=== PATIENT | female | born 1940 | race African-American/Black ===

== ENCOUNTER 2021-12-28 14:06 | Inpatient (IN) | payer OTHER ==
[2021-12-28 16:27] LABS: BASO % 0.7 % (0-2.0); EOS % 0.4 % (0-4.5); HEMATOCRIT 45.6 % (32.4-45.2); HEMOGLOBIN 15.3 GM/dL (10.7-15.3); LYMPH % 21.3 % (8-40); MCHC 33.5 g/dl (32.0-36.0); MEAN CELL VOLUME 83.4 fl (80-96); MEAN PLT VOLUME 9.3 fl (7.5-11.1); MONO % 6.7 % (3.8-10.2); NEUT % 70.9 % (42.8-82.8); PLATELET COUNT 225 10^3/uL (134-434); RBC 5.47 M/mm3 (3.60-5.2); RDW 15.7 % (11.6-15.6); WHITE BLOOD COUNT 7.8 K/mm3 (4.0-10.0)
[2021-12-28 16:33] LABS: INR 1.11 (0.83-1.09); PROTHROMBIN TIME (PATIENT) 12.8 SEC (9.7-13.0)
[2021-12-28 16:36] LABS: ACTIVATED PTT 30.6 SECONDS (25.2-36.5)
[2021-12-28 16:47] LABS: CHLORIDE 103 mmol/L (98-107); SODIUM 141 mmol/L (136-145)
[2021-12-28 16:49] LABS: ALBUMIN 3.2 g/dl (3.4-5.0); ANION GAP 10 MMOL/L (8-16); CALCIUM 9.5 mg/dL (8.5-10.1); CO2 28 mmol/L (21-32)
[2021-12-28 16:50] LABS: BLOOD UREA NITROGEN 25.2 mg/dL (7-18); GLUCOSE,RANDOM 143 mg/dL (74-106)
[2021-12-28 16:52] LABS: CREATININE 1.5 mg/dL (0.55-1.3); SGOT/AST 43 U/L (15-37)
[2021-12-28 16:53] LABS: SGPT/ALT 33 U/L (13-61)
[2021-12-28 16:54] LABS: BILIRUBIN,TOTAL 1.3 mg/dL (0.2-1); TOT PROT 6.8 g/dl (6.4-8.2)
[2021-12-28 16:55] LABS: ALK PHOS 46 U/L (45-117)
[2021-12-28 16:57] LABS: N-TERMINAL BNP 1114.2 pg/ml (5-450)
[2021-12-28] MEDS ORDERED: SODIUM CHLORIDE 0.9% 500 ML INFUS.BAG IV ONE (17:12)
[2021-12-28] MEDS ORDERED: ASPIRIN 81 MG CHEWABLE TABLETS PO ONE (17:15)
[2021-12-28] MEDS ORDERED: ASPIRIN 325 MG TABLET ONE (17:31)
[2021-12-28] MEDS ORDERED: POTASSIUM CHLORIDE TABS 20 MEQ TABLET.ER (FP) PO ONE (21:32)
[2021-12-28 21:41] LABS: EPI CELLS 27 /uL (0-25.1); HYALINE CASTS 38 /uL (0-3.1); URINE APPEARANCE CLOUDY; URINE BILIRUBIN 3+ (NEGATIVE); URINE COLOR DK YELLOW; URINE GLUCOSE (UA) NEGATIVE (NEGATIVE); URINE KETONE 1+ (NEGATIVE); URINE LEUK ESTERASE TRACE (NEGATIVE); URINE NITRITE POSITIVE (NEGATIVE); URINE PROTEIN 1+ (NEGATIVE); URINE RBC 18 /uL (0-23.9); URINE WBC 31 /uL (0-25.8)
[2021-12-28] MEDS ORDERED: CEFTRIAXONE 1 GM/50 ML BAG ONE (23:59)
[2021-12-29] MEDS: LACTATED RINGERS SOLUTION 1,000 ML/1,000 ML INFUS.BAG IV SCH ×2 (00:10→23:39)
[2021-12-29] MEDS ORDERED: KCL 10 MEQ IVPB 10 MEQ/100 ML INFUS.BAG IVPB ONE (02:31)
[2021-12-29] MEDS: KCL 10 MEQ IVPB 10 MEQ/100 ML INFUS.BAG IVPB SCH ×4 (02:40→11:38)
[2021-12-29] MEDS ORDERED: CEFTRIAXONE 1 GM in DEXTROSE 5%-WATER - 50 ML IVPB SCH ×2 (02:58→22:33)
[2021-12-29 04:11] VITALS: BMI 20.2
[2021-12-29] MEDS: HEPARIN NA (PORCINE) 5,000 UNITS/ML 1ML VIAL SQ SCH ×3 (05:05→21:13)
[2021-12-29 08:28] LABS: BASO % 0.7 % (0-2.0); EOS % 1.1 % (0-4.5); HEMATOCRIT 39.3 % (32.4-45.2); HEMOGLOBIN 12.6 GM/dL (10.7-15.3); LYMPH % 24.8 % (8-40); MCH 26.8 pg (25.7-33.7); MEAN CELL VOLUME 83.7 fl (80-96); MEAN PLT VOLUME 9.6 fl (7.5-11.1); MONO % 8.5 % (3.8-10.2); NEUT % 64.9 % (42.8-82.8); PLATELET COUNT 188 10^3/uL (134-434); RBC 4.69 M/mm3 (3.60-5.2); RDW 15.5 % (11.6-15.6); WHITE BLOOD COUNT 7.1 K/mm3 (4.0-10.0)
[2021-12-29 08:40] LABS: CHLORIDE 107 mmol/L (98-107); SODIUM 144 mmol/L (136-145)
[2021-12-29 08:45] LABS: GLUCOSE,RANDOM 79 mg/dL (74-106)
[2021-12-29 08:46] LABS: ALBUMIN 2.6 g/dl (3.4-5.0); ANION GAP 10 MMOL/L (8-16); BLOOD UREA NITROGEN 24.4 mg/dL (7-18); CALCIUM 8.9 mg/dL (8.5-10.1); CO2 27 mmol/L (21-32); MAGNESIUM 1.9 mg/dL (1.8-2.4)
[2021-12-29 08:49] LABS: PHOSPHOROUS 3.2 mg/dL (2.5-4.9); SGPT/ALT 27 U/L (13-61)
[2021-12-29 08:50] LABS: CREATININE 1.2 mg/dL (0.55-1.3); SGOT/AST 31 U/L (15-37); TOT PROT 5.6 g/dl (6.4-8.2)
[2021-12-29 08:52] LABS: ALK PHOS 37 U/L (45-117)
[2021-12-29] MEDS ORDERED: ENOXAPARIN NA (PORCINE) 40 MG/0.4 ML DISP.SYRIN SQ SCH (10:00)
[2021-12-29] MEDS ORDERED: POTASSIUM CHLORIDE TABS 20 MEQ TABLET.ER (FP) PO ONE (13:07)
[2021-12-29] MEDS ORDERED: PNEUMOC 20-VAL CONJ-DIP CRM/PF 0.5 ML SYRINGE IM ONE (17:12)
[2021-12-29] MEDS ORDERED: FLU VACC QS2022-23(6MOS UP)/PF 60 MCG/0.5 ML SYRINGE IM ONE (17:12)
[2021-12-30] MEDS: HEPARIN NA (PORCINE) 5,000 UNITS/ML 1ML VIAL SQ SCH ×3 (06:51→21:20)
[2021-12-30] MEDS: KCL 10 MEQ IVPB 10 MEQ/100 ML INFUS.BAG IVPB SCH (06:52)
[2021-12-30 11:19] LABS: CALCIUM 8.9 mg/dL (8.5-10.1)
[2021-12-30 11:21] LABS: MAGNESIUM 1.9 mg/dL (1.8-2.4)
[2021-12-30] MEDS: ATORVASTATIN CA 10 MG TABLET (FP) PO SCH (21:28)
[2021-12-30] MEDS: LACTATED RINGERS SOLUTION 1,000 ML/1,000 ML INFUS.BAG IV SCH (23:55)
[2021-12-31] MEDS: HEPARIN NA (PORCINE) 5,000 UNITS/ML 1ML VIAL SQ SCH ×3 (06:17→23:05)
[2021-12-31 08:21] LABS: BASO % 1.1 % (0-2.0); EOS % 2.1 % (0-4.5); HEMATOCRIT 39.7 % (32.4-45.2); HEMOGLOBIN 12.9 GM/dL (10.7-15.3); LYMPH % 30.8 % (8-40); MCH 27.1 pg (25.7-33.7); MCHC 32.4 g/dl (32.0-36.0); MEAN CELL VOLUME 83.7 fl (80-96); MEAN PLT VOLUME 9.5 fl (7.5-11.1); MONO % 11.4 % (3.8-10.2); NEUT % 54.6 % (42.8-82.8); PLATELET COUNT 162 10^3/uL (134-434); RBC 4.75 M/mm3 (3.60-5.2); RDW 15.7 % (11.6-15.6); WHITE BLOOD COUNT 4.5 K/mm3 (4.0-10.0)
[2021-12-31 08:44] LABS: CALCIUM 8.9 mg/dL (8.5-10.1)
[2021-12-31 08:45] LABS: BLOOD UREA NITROGEN 10.4 mg/dL (7-18)
[2021-12-31 08:48] LABS: CREATININE 0.8 mg/dL (0.55-1.3)
[2021-12-31] MEDS ORDERED: POTASSIUM CHLORIDE TABS 20 MEQ TABLET.ER (FP) PO ONE (09:04)
[2021-12-31] MEDS: ASPIRIN 81 MG CHEWABLE TABLETS PO SCH (10:16)
[2021-12-31 11:23] LABS: MAGNESIUM 1.7 mg/dL (1.8-2.4)
[2021-12-31 11:26] LABS: PHOSPHOROUS 2.7 mg/dL (2.5-4.9)
[2021-12-31] MEDS ORDERED: MAGNESIUM SULF 50% (8.12 MEQ/2 ML-1 GM VIAL) IVPB ONE (13:26)
[2021-12-31] MEDS: METOPROLOL TARTRATE 25 MG TABLET (FP) PO SCH (23:05)
[2021-12-31] MEDS: ATORVASTATIN CA 10 MG TABLET (FP) PO SCH (23:06)
[2021-12-31] MEDS: LACTATED RINGERS SOLUTION 1,000 ML/1,000 ML INFUS.BAG IV SCH (23:19)
[2022-01-01] MEDS: HEPARIN NA (PORCINE) 5,000 UNITS/ML 1ML VIAL SQ SCH ×3 (06:59→23:12)
[2022-01-01 09:35] LABS: HEMOGLOBIN 13.5 GM/dL (10.7-15.3); MCH 26.8 pg (25.7-33.7); MCHC 32.2 g/dl (32.0-36.0); MEAN CELL VOLUME 83.3 fl (80-96); MEAN PLT VOLUME 9.6 fl (7.5-11.1); PLATELET COUNT 188 10^3/uL (134-434); RBC 5.04 M/mm3 (3.60-5.2); RDW 15.6 % (11.6-15.6); WHITE BLOOD COUNT 5.5 K/mm3 (4.0-10.0)
[2022-01-01] MEDS: ASPIRIN 81 MG CHEWABLE TABLETS PO SCH (09:56)
[2022-01-01] MEDS: METOPROLOL TARTRATE 25 MG TABLET (FP) PO SCH ×2 (09:56→23:13)
[2022-01-01 10:02] LABS: BLOOD UREA NITROGEN 7.3 mg/dL (7-18); MAGNESIUM 1.9 mg/dL (1.8-2.4)
[2022-01-01 10:03] LABS: ALBUMIN 2.7 g/dl (3.4-5.0)
[2022-01-01 10:05] LABS: CREATININE 0.8 mg/dL (0.55-1.3); PHOSPHOROUS 2.9 mg/dL (2.5-4.9)
[2022-01-01 10:07] LABS: BILIRUBIN,TOTAL 0.9 mg/dL (0.2-1); TOT PROT 5.7 g/dl (6.4-8.2)
[2022-01-01] MEDS: LACTATED RINGERS SOLUTION 1,000 ML/1,000 ML INFUS.BAG IV SCH ×2 (20:35→23:14)
[2022-01-01] MEDS: ATORVASTATIN CA 10 MG TABLET (FP) PO SCH (23:13)
[2022-01-02] MEDS: HEPARIN NA (PORCINE) 5,000 UNITS/ML 1ML VIAL SQ SCH ×3 (07:18→21:06)
[2022-01-02] MEDS: METOPROLOL TARTRATE 25 MG TABLET (FP) PO SCH ×2 (09:37→21:06)
[2022-01-02] MEDS ORDERED: ASPIRIN 81 MG CHEWABLE TABLETS PO SCH (10:00)
[2022-01-02 18:06] VITALS: RESP 18
[2022-01-02] MEDS: LACTATED RINGERS SOLUTION 1,000 ML/1,000 ML INFUS.BAG IV SCH (20:52)
[2022-01-02] MEDS: ATORVASTATIN CA 10 MG TABLET (FP) PO SCH (21:06)
[2022-01-03 00:08] VITALS: BP 155/87; PULSE 65; TEMP 97.5
== END 2022-01-02 22:30 | DRG 641 ==
LOC: JER 14:06 → JERBED 22:38 → J4W 12-29 04:13 → J7W 12-31 16:33
PROVIDERS: ADMIT Internal Medicine; ATTEND Internal Medicine
DX: E86.0 Dehydration (principal); I24.8 Other forms of acute ischemic heart disease; M19.90 Unspecified osteoarthritis, unspecified site; M62.81 Muscle weakness (generalized); R74.01 Elevation of levels of liver transaminase levels; E87.6 Hypokalemia
CPT/HCPCS: 0241U-QW; 36415; 70450-TC; 71045-TC-FY; 76775-TC; 80048; 80053; 80061; 81003; 82550; 82553; 83735; 83880; 84100; 84443; 84484; 85025; 85027; 85610; 85730; 86850; 86900; 86901; 87086; 90677; 93005; 93010; 93306-TC; 93880-TC; 97116-GP; 97161-GP; 99285-25; C9803-CS; G0008; J1644; Q2036; U0003; U0005

== ENCOUNTER 2022-07-05 17:06 | Inpatient (IN) | payer OTHER ==
[2022-07-05 17:35] VITALS: BMI 20.9
[2022-07-05 18:00] LABS: BASO % 0.6 % (0-2.0); EOS % 1.5 % (0-4.5); HEMATOCRIT 40.7 % (32.4-45.2); HEMOGLOBIN 13.1 GM/dL (10.7-15.3); LYMPH % 42.1 % (8-40); MCH 28.1 pg (25.7-33.7); MCHC 32.3 g/dl (32.0-36.0); MEAN PLT VOLUME 9.5 fl (7.5-11.1); NEUT % 46.8 % (42.8-82.8); PLATELET COUNT 177 10^3/uL (134-434); RBC 4.68 M/mm3 (3.60-5.2); RDW 15.2 % (11.6-15.6); WHITE BLOOD COUNT 5.5 K/mm3 (4.0-10.0)
[2022-07-05 18:18] LABS: EPI CELLS 13 /uL (0-25.1); HYALINE CASTS 1 /uL (0-3.1); PH,URINE 5.5 (5.0-8.0); URINE APPEARANCE CLEAR; URINE BACTERIA 4 /uL (0-1359); URINE BILIRUBIN NEGATIVE (NEGATIVE); URINE COLOR YELLOW; URINE GLUCOSE (UA) NEGATIVE (NEGATIVE); URINE KETONE TRACE (NEGATIVE); URINE LEUK ESTERASE NEGATIVE (NEGATIVE); URINE NITRITE NEGATIVE (NEGATIVE); URINE PROTEIN TRACE (NEGATIVE); URINE RBC 51 /uL (0-23.9); URINE WBC 28 /uL (0-25.8)
[2022-07-05 18:19] LABS: POTASSIUM 3.8 mmol/L (3.5-5.1)
[2022-07-05 18:20] LABS: CALCIUM 9.1 mg/dL (8.5-10.1)
[2022-07-05 18:21] LABS: ALBUMIN 3.5 g/dl (3.4-5.0); BLOOD UREA NITROGEN 16.2 mg/dL (7-18); MAGNESIUM 2.1 mg/dL (1.8-2.4)
[2022-07-05 18:26] LABS: BILIRUBIN,TOTAL 0.4 mg/dL (0.2-1); TOT PROT 7.5 g/dl (6.4-8.2)
[2022-07-05] MEDS ORDERED: LORazepam 2 MG/ML SDV VIAL IVPUSH ONE (18:44)
[2022-07-06] MEDS ORDERED: VALPROATE SODIUM 250 MG/5 ML UNIT DOSE CUP PO PRN (00:43)
[2022-07-06 07:10] LABS: HEMATOCRIT 36.7 % (32.4-45.2); HEMOGLOBIN 12.6 GM/dL (10.7-15.3); MCH 29.7 pg (25.7-33.7); MCHC 34.2 g/dl (32.0-36.0); MEAN CELL VOLUME 86.9 fl (80-96); MEAN PLT VOLUME 9.8 fl (7.5-11.1); PLATELET COUNT 141 10^3/uL (134-434); RBC 4.22 M/mm3 (3.60-5.2)
[2022-07-06 07:30] LABS: POTASSIUM 3.6 mmol/L (3.5-5.1)
[2022-07-06 07:34] LABS: CALCIUM 9.2 mg/dL (8.5-10.1)
[2022-07-06 07:35] LABS: ALBUMIN 3.1 g/dl (3.4-5.0); BLOOD UREA NITROGEN 14.5 mg/dL (7-18); MAGNESIUM 1.9 mg/dL (1.8-2.4)
[2022-07-06 07:38] LABS: CREATININE 0.9 mg/dL (0.55-1.3); PHOSPHOROUS 3.4 mg/dL (2.5-4.9)
[2022-07-06 07:39] LABS: BILIRUBIN,TOTAL 0.6 mg/dL (0.2-1); TOT PROT 6.6 g/dl (6.4-8.2)
[2022-07-06] MEDS: ENOXAPARIN NA (PORCINE) 40 MG/0.4 ML DISP.SYRIN SQ SCH (09:16)
[2022-07-06] MEDS: ASPIRIN COATED 81 MG TABLET.EC PO SCH (09:16)
[2022-07-06] MEDS: ESCITALOPRAM OXALATE 10 MG TABLET PO SCH (09:16)
[2022-07-06] MEDS ORDERED: METOPROLOL TARTRATE 25 MG TABLET (FP) PO SCH (10:00)
[2022-07-06] MEDS ORDERED: OLANZapine 2.5 MG TABLET PO SCH ×2 (14:00→22:00)
[2022-07-06] MEDS: LOSARTAN POTASSIUM 50 MG TABLET PO SCH (17:25)
[2022-07-06] MEDS ORDERED: traZODone HCL 50 MG TABLET (FP) PO SCH (22:00)
[2022-07-06] MEDS: ATORVASTATIN CA 20 MG TABLET (FP) PO SCH (22:22)
[2022-07-06] MEDS: METOPROLOL TARTRATE 25 MG TABLET (FP) PO SCH (22:22)
[2022-07-06] MEDS: MELATONIN 5 MG TABLETS PO SCH (22:23)
[2022-07-07] MEDS: ENOXAPARIN NA (PORCINE) 40 MG/0.4 ML DISP.SYRIN SQ SCH (10:36)
[2022-07-07] MEDS: ASPIRIN COATED 81 MG TABLET.EC PO SCH (10:37)
[2022-07-07] MEDS: LOSARTAN POTASSIUM 50 MG TABLET PO SCH (10:37)
[2022-07-07] MEDS: ESCITALOPRAM OXALATE 10 MG TABLET PO SCH (10:37)
[2022-07-07] MEDS: METOPROLOL TARTRATE 25 MG TABLET (FP) PO SCH ×2 (11:12→21:27)
[2022-07-07] MEDS ORDERED: LOSARTAN POTASSIUM 50 MG TABLET PO ONE (15:49)
[2022-07-07] MEDS: ATORVASTATIN CA 20 MG TABLET (FP) PO SCH (21:31)
[2022-07-07] MEDS: MELATONIN 5 MG TABLETS PO SCH (21:32)
[2022-07-07] MEDS: OLANZapine 2.5 MG TABLET PO SCH (21:32)
[2022-07-07] MEDS ORDERED: OLANZapine 2.5 MG TABLET PO SCH (22:00)
[2022-07-08 07:17] LABS: BASO % 0.7 % (0-2.0); EOS % 1.7 % (0-4.5); HEMOGLOBIN 12.4 GM/dL (10.7-15.3); LYMPH % 38.4 % (8-40); MCH 28.4 pg (25.7-33.7); MCHC 32.6 g/dl (32.0-36.0); MEAN CELL VOLUME 87.2 fl (80-96); MEAN PLT VOLUME 9.9 fl (7.5-11.1); MONO % 9.2 % (3.8-10.2); PLATELET COUNT 155 10^3/uL (134-434); RBC 4.35 M/mm3 (3.60-5.2); RDW 14.8 % (11.6-15.6)
[2022-07-08 07:20] LABS: POTASSIUM 3.3 mmol/L (3.5-5.1)
[2022-07-08 07:28] LABS: BLOOD UREA NITROGEN 14.5 mg/dL (7-18); CALCIUM 9.2 mg/dL (8.5-10.1); MAGNESIUM 2.1 mg/dL (1.8-2.4)
[2022-07-08 07:31] LABS: PHOSPHOROUS 3.7 mg/dL (2.5-4.9)
[2022-07-08] MEDS ORDERED: POTASSIUM CHLORIDE ORAL LIQUID 20 MEQ/15 ML PO ONE ×2 (09:00→11:45)
[2022-07-08] MEDS: ENOXAPARIN NA (PORCINE) 40 MG/0.4 ML DISP.SYRIN SQ SCH (11:05)
[2022-07-08] MEDS: ASPIRIN COATED 81 MG TABLET.EC PO SCH (11:06)
[2022-07-08] MEDS: OLANZapine 2.5 MG TABLET PO SCH ×2 (11:06→21:18)
[2022-07-08] MEDS: LOSARTAN POTASSIUM 50 MG TABLET PO SCH (11:06)
[2022-07-08] MEDS: ESCITALOPRAM OXALATE 10 MG TABLET PO SCH (11:06)
[2022-07-08] MEDS: METOPROLOL TARTRATE 25 MG TABLET (FP) PO SCH (11:06)
[2022-07-08] MEDS: ATORVASTATIN CA 20 MG TABLET (FP) PO SCH (21:18)
[2022-07-08] MEDS: MELATONIN 5 MG TABLETS PO SCH (21:18)
[2022-07-09 07:17] LABS: HEMATOCRIT 36.3 % (32.4-45.2); HEMOGLOBIN 11.9 GM/dL (10.7-15.3); MCHC 32.9 g/dl (32.0-36.0); MEAN CELL VOLUME 88.3 fl (80-96); MEAN PLT VOLUME 10.3 fl (7.5-11.1); PLATELET COUNT 155 10^3/uL (134-434); RBC 4.12 M/mm3 (3.60-5.2); RDW 14.9 % (11.6-15.6); WHITE BLOOD COUNT 5.4 K/mm3 (4.0-10.0)
[2022-07-09 07:38] LABS: POTASSIUM 3.3 mmol/L (3.5-5.1)
[2022-07-09 07:43] LABS: CALCIUM 9.3 mg/dL (8.5-10.1)
[2022-07-09 07:44] LABS: ALBUMIN 2.9 g/dl (3.4-5.0); BLOOD UREA NITROGEN 18.1 mg/dL (7-18); MAGNESIUM 1.9 mg/dL (1.8-2.4)
[2022-07-09 07:48] LABS: TOT PROT 6.3 g/dl (6.4-8.2)
[2022-07-09 07:49] LABS: BILIRUBIN,TOTAL 0.5 mg/dL (0.2-1)
[2022-07-09] MEDS ORDERED: D5-1/2NS+30 MEQ KCL - 30 MEQ/1,000 ML INFUS.BAG IV SCH (08:15)
[2022-07-09] MEDS: LOSARTAN POTASSIUM 50 MG TABLET PO SCH (11:05)
[2022-07-09] MEDS: ASPIRIN COATED 81 MG TABLET.EC PO SCH (11:06)
[2022-07-09] MEDS: OLANZapine 2.5 MG TABLET PO SCH (11:06)
[2022-07-09] MEDS: ENOXAPARIN NA (PORCINE) 40 MG/0.4 ML DISP.SYRIN SQ SCH (11:06)
[2022-07-09] MEDS: ESCITALOPRAM OXALATE 10 MG TABLET PO SCH (11:06)
[2022-07-09] MEDS ORDERED: POTASSIUM CHLORIDE ORAL LIQUID 20 MEQ/15 ML PO ONE (12:58)
[2022-07-09] MEDS: OLANZapine 5 MG TABLET PO SCH (21:38)
[2022-07-09] MEDS: ATORVASTATIN CA 20 MG TABLET (FP) PO SCH (21:38)
[2022-07-09] MEDS: MELATONIN 5 MG TABLETS PO SCH (21:38)
[2022-07-10] MEDS ORDERED: amLODIPine BESYLATE 5 MG TABLET (FP) PO ONE (07:15)
[2022-07-10] MEDS: ESCITALOPRAM OXALATE 10 MG TABLET PO SCH (09:01)
[2022-07-10] MEDS: ASPIRIN COATED 81 MG TABLET.EC PO SCH (09:01)
[2022-07-10] MEDS: LOSARTAN POTASSIUM 50 MG TABLET PO SCH (09:01)
[2022-07-10] MEDS: OLANZapine 5 MG TABLET PO SCH ×2 (09:02→23:27)
[2022-07-10] MEDS: ENOXAPARIN NA (PORCINE) 40 MG/0.4 ML DISP.SYRIN SQ SCH (09:02)
[2022-07-10 09:32] LABS: HEMATOCRIT 37.9 % (32.4-45.2); HEMOGLOBIN 12.7 GM/dL (10.7-15.3); MCH 29.3 pg (25.7-33.7); MCHC 33.6 g/dl (32.0-36.0); MEAN CELL VOLUME 87.2 fl (80-96); MEAN PLT VOLUME 9.5 fl (7.5-11.1); PLATELET COUNT 184 10^3/uL (134-434); RBC 4.35 M/mm3 (3.60-5.2); RDW 14.7 % (11.6-15.6); WHITE BLOOD COUNT 6.7 K/mm3 (4.0-10.0)
[2022-07-10 09:44] LABS: POTASSIUM 3.4 mmol/L (3.5-5.1)
[2022-07-10 09:55] LABS: CALCIUM 9.2 mg/dL (8.5-10.1)
[2022-07-10 09:56] LABS: ALBUMIN 3.2 g/dl (3.4-5.0); BLOOD UREA NITROGEN 12.7 mg/dL (7-18); MAGNESIUM 1.8 mg/dL (1.8-2.4)
[2022-07-10 09:59] LABS: CREATININE 0.9 mg/dL (0.55-1.3); PHOSPHOROUS 3.2 mg/dL (2.5-4.9)
[2022-07-10 10:00] LABS: BILIRUBIN,TOTAL 0.5 mg/dL (0.2-1); TOT PROT 6.8 g/dl (6.4-8.2)
[2022-07-10] MEDS ORDERED: D5-1/2NS+30 MEQ KCL - 30 MEQ/1,000 ML INFUS.BAG IV SCH (14:30)
[2022-07-10] MEDS: MELATONIN 5 MG TABLETS PO SCH (23:27)
[2022-07-10] MEDS: ATORVASTATIN CA 20 MG TABLET (FP) PO SCH (23:27)
[2022-07-11] MEDS: OLANZapine 5 MG TABLET PO SCH ×2 (09:11→21:19)
[2022-07-11] MEDS: LOSARTAN POTASSIUM 50 MG TABLET PO SCH (09:11)
[2022-07-11] MEDS: ASPIRIN COATED 81 MG TABLET.EC PO SCH (09:11)
[2022-07-11] MEDS: ENOXAPARIN NA (PORCINE) 40 MG/0.4 ML DISP.SYRIN SQ SCH (09:12)
[2022-07-11 13:09] LABS: HEMATOCRIT 35.5 % (32.4-45.2); HEMOGLOBIN 11.6 GM/dL (10.7-15.3); MCH 28.7 pg (25.7-33.7); MCHC 32.8 g/dl (32.0-36.0); MEAN CELL VOLUME 87.7 fl (80-96); MEAN PLT VOLUME 9.9 fl (7.5-11.1); PLATELET COUNT 154 10^3/uL (134-434); RBC 4.05 M/mm3 (3.60-5.2); RDW 15.2 % (11.6-15.6); WHITE BLOOD COUNT 4.9 K/mm3 (4.0-10.0)
[2022-07-11 13:24] LABS: POTASSIUM 3.8 mmol/L (3.5-5.1)
[2022-07-11 13:26] LABS: ALBUMIN 2.8 g/dl (3.4-5.0); MAGNESIUM 1.7 mg/dL (1.8-2.4)
[2022-07-11 13:27] LABS: BLOOD UREA NITROGEN 13.7 mg/dL (7-18)
[2022-07-11 13:29] LABS: PHOSPHOROUS 3.3 mg/dL (2.5-4.9)
[2022-07-11 13:31] LABS: BILIRUBIN,TOTAL 0.4 mg/dL (0.2-1); TOT PROT 6.1 g/dl (6.4-8.2)
[2022-07-11] MEDS: DEXTROSE 5%-0.45% SALINE 1,000 ML IV SCH (19:55)
[2022-07-11] MEDS: ATORVASTATIN CA 20 MG TABLET (FP) PO SCH (21:18)
[2022-07-11] MEDS: MELATONIN 5 MG TABLETS PO SCH (21:18)
[2022-07-12] MEDS ORDERED: POTASSIUM PHOSPHATE 30 MM in DEXTROSE 5%-WATER - 500 ML IVPB ONE (09:00)
[2022-07-12] MEDS: OLANZapine 5 MG TABLET PO SCH ×2 (09:00→22:16)
[2022-07-12] MEDS: ASPIRIN COATED 81 MG TABLET.EC PO SCH (09:01)
[2022-07-12] MEDS: ENOXAPARIN NA (PORCINE) 40 MG/0.4 ML DISP.SYRIN SQ SCH (09:01)
[2022-07-12] MEDS: LOSARTAN POTASSIUM 50 MG TABLET PO SCH (09:01)
[2022-07-12 16:31] LABS: CALCIUM 9.2 mg/dL (8.5-10.1)
[2022-07-12 16:32] LABS: BLOOD UREA NITROGEN 16.3 mg/dL (7-18)
[2022-07-12] MEDS: DEXTROSE 5%-0.45% SALINE 1,000 ML IV SCH (22:08)
[2022-07-12] MEDS: ATORVASTATIN CA 20 MG TABLET (FP) PO SCH (22:16)
[2022-07-12] MEDS: MELATONIN 5 MG TABLETS PO SCH (22:16)
[2022-07-13 08:29] LABS: HEMATOCRIT 37.2 % (32.4-45.2); HEMOGLOBIN 12.2 GM/dL (10.7-15.3); MCH 28.6 pg (25.7-33.7); MCHC 32.7 g/dl (32.0-36.0); MEAN CELL VOLUME 87.6 fl (80-96); MEAN PLT VOLUME 9.6 fl (7.5-11.1); PLATELET COUNT 161 10^3/uL (134-434); RBC 4.25 M/mm3 (3.60-5.2); RDW 15.2 % (11.6-15.6); WHITE BLOOD COUNT 6.4 K/mm3 (4.0-10.0)
[2022-07-13 08:47] LABS: POTASSIUM 4.2 mmol/L (3.5-5.1)
[2022-07-13 08:52] LABS: ALBUMIN 2.9 g/dl (3.4-5.0); BLOOD UREA NITROGEN 15.4 mg/dL (7-18); CALCIUM 9.3 mg/dL (8.5-10.1); MAGNESIUM 1.9 mg/dL (1.8-2.4)
[2022-07-13 08:55] LABS: CREATININE 0.9 mg/dL (0.55-1.3); PHOSPHOROUS 4.5 mg/dL (2.5-4.9)
[2022-07-13 08:56] LABS: TOT PROT 6.3 g/dl (6.4-8.2)
[2022-07-13 08:57] LABS: BILIRUBIN,TOTAL 0.4 mg/dL (0.2-1)
[2022-07-13] MEDS: LOSARTAN POTASSIUM 50 MG TABLET PO SCH (10:45)
[2022-07-13] MEDS: ASPIRIN COATED 81 MG TABLET.EC PO SCH (10:45)
[2022-07-13] MEDS: OLANZapine 5 MG TABLET PO SCH ×2 (10:46→21:35)
[2022-07-13] MEDS: ENOXAPARIN NA (PORCINE) 40 MG/0.4 ML DISP.SYRIN SQ SCH (10:46)
[2022-07-13] MEDS: DEXTROSE 5%-0.45% SALINE 1,000 ML IV SCH (21:35)
[2022-07-13] MEDS: MELATONIN 5 MG TABLETS PO SCH (21:35)
[2022-07-13] MEDS: ATORVASTATIN CA 20 MG TABLET (FP) PO SCH (21:35)
[2022-07-14] MEDS: OLANZapine 5 MG TABLET PO SCH ×2 (10:09→21:03)
[2022-07-14] MEDS: ASPIRIN COATED 81 MG TABLET.EC PO SCH (10:09)
[2022-07-14] MEDS: LOSARTAN POTASSIUM 50 MG TABLET PO SCH (10:09)
[2022-07-14] MEDS: ENOXAPARIN NA (PORCINE) 40 MG/0.4 ML DISP.SYRIN SQ SCH (10:10)
[2022-07-14 13:08] LABS: HEMATOCRIT 37.4 % (32.4-45.2); MCH 28.2 pg (25.7-33.7); MCHC 32.2 g/dl (32.0-36.0); MEAN CELL VOLUME 87.4 fl (80-96); MEAN PLT VOLUME 9.6 fl (7.5-11.1); PLATELET COUNT 173 10^3/uL (134-434); RBC 4.28 M/mm3 (3.60-5.2); RDW 15.8 % (11.6-15.6); WHITE BLOOD COUNT 5.9 K/mm3 (4.0-10.0)
[2022-07-14 13:27] LABS: POTASSIUM 4.5 mmol/L (3.5-5.1)
[2022-07-14 13:29] LABS: ALBUMIN 2.7 g/dl (3.4-5.0); CALCIUM 8.8 mg/dL (8.5-10.1)
[2022-07-14 13:30] LABS: BLOOD UREA NITROGEN 16.6 mg/dL (7-18); MAGNESIUM 1.9 mg/dL (1.8-2.4)
[2022-07-14 13:33] LABS: PHOSPHOROUS 3.6 mg/dL (2.5-4.9)
[2022-07-14 13:34] LABS: BILIRUBIN,TOTAL 0.4 mg/dL (0.2-1); TOT PROT 5.9 g/dl (6.4-8.2)
[2022-07-14] MEDS: DEXTROSE 5%-0.45% SALINE 1,000 ML IV SCH (21:03)
[2022-07-14] MEDS: ATORVASTATIN CA 20 MG TABLET (FP) PO SCH (21:03)
[2022-07-14] MEDS: MELATONIN 5 MG TABLETS PO SCH (21:03)
[2022-07-15] MEDS: DEXTROSE 5%-0.45% SALINE 1,000 ML IV SCH (02:56)
[2022-07-15 07:37] LABS: BASO % 1.3 % (0-2.0); EOS % 2.3 % (0-4.5); HEMATOCRIT 35.3 % (32.4-45.2); HEMOGLOBIN 11.8 GM/dL (10.7-15.3); LYMPH % 40.6 % (8-40); MCH 29.2 pg (25.7-33.7); MCHC 33.4 g/dl (32.0-36.0); MEAN CELL VOLUME 87.4 fl (80-96); MEAN PLT VOLUME 10.8 fl (7.5-11.1); MONO % 13.6 % (3.8-10.2); NEUT % 42.2 % (42.8-82.8); PLATELET COUNT 150 10^3/uL (134-434); RBC 4.04 M/mm3 (3.60-5.2); RDW 15.2 % (11.6-15.6); WHITE BLOOD COUNT 6.5 K/mm3 (4.0-10.0)
[2022-07-15 07:52] LABS: POTASSIUM 3.9 mmol/L (3.5-5.1)
[2022-07-15 07:59] LABS: ALBUMIN 2.6 g/dl (3.4-5.0); BLOOD UREA NITROGEN 17.5 mg/dL (7-18); CALCIUM 8.9 mg/dL (8.5-10.1); MAGNESIUM 1.8 mg/dL (1.8-2.4)
[2022-07-15 08:02] LABS: CREATININE 0.9 mg/dL (0.55-1.3); PHOSPHOROUS 3.7 mg/dL (2.5-4.9)
[2022-07-15 08:04] LABS: BILIRUBIN,TOTAL 0.4 mg/dL (0.2-1); TOT PROT 5.7 g/dl (6.4-8.2)
[2022-07-15] MEDS: ENOXAPARIN NA (PORCINE) 40 MG/0.4 ML DISP.SYRIN SQ SCH (09:29)
[2022-07-15] MEDS: ASPIRIN COATED 81 MG TABLET.EC PO SCH (09:29)
[2022-07-15] MEDS: LOSARTAN POTASSIUM 50 MG TABLET PO SCH (09:29)
[2022-07-15] MEDS: OLANZapine 5 MG TABLET PO SCH ×2 (09:30→21:10)
[2022-07-15] MEDS ORDERED: POTASSIUM CHLORIDE 10 MEQ in DEXTROSE 5%-WATER - 1,000 ML IV SCH (13:00)
[2022-07-15 13:11] LABS: INR 1.17 (0.83-1.09); PROTHROMBIN TIME (PATIENT) 13.5 SEC (9.7-13.0)
[2022-07-15 13:14] LABS: ACTIVATED PTT 38.5 SECONDS (25.2-36.5)
[2022-07-15 19:57] LABS: HIV INTERPRETATION NEGATIVE (NEGATIVE)
[2022-07-15] MEDS: ATORVASTATIN CA 20 MG TABLET (FP) PO SCH (21:10)
[2022-07-15] MEDS: MELATONIN 5 MG TABLETS PO SCH (21:11)
[2022-07-16 08:45] LABS: HEMATOCRIT 36.2 % (32.4-45.2); HEMOGLOBIN 12.2 GM/dL (10.7-15.3); MCH 29.4 pg (25.7-33.7); MCHC 33.7 g/dl (32.0-36.0); MEAN CELL VOLUME 87.4 fl (80-96); PLATELET COUNT 171 10^3/uL (134-434); RBC 4.14 M/mm3 (3.60-5.2); RDW 14.8 % (11.6-15.6)
[2022-07-16 09:09] LABS: ALBUMIN 2.9 g/dl (3.4-5.0); CALCIUM 9.1 mg/dL (8.5-10.1); MAGNESIUM 1.9 mg/dL (1.8-2.4)
[2022-07-16 09:12] LABS: PHOSPHOROUS 3.5 mg/dL (2.5-4.9)
[2022-07-16 09:13] LABS: BILIRUBIN,TOTAL 0.5 mg/dL (0.2-1); TOT PROT 6.2 g/dl (6.4-8.2)
[2022-07-16] MEDS: ENOXAPARIN NA (PORCINE) 40 MG/0.4 ML DISP.SYRIN SQ SCH (10:13)
[2022-07-16] MEDS: ASPIRIN COATED 81 MG TABLET.EC PO SCH (10:13)
[2022-07-16] MEDS: OLANZapine 5 MG TABLET PO SCH ×2 (10:13→21:20)
[2022-07-16] MEDS: LOSARTAN POTASSIUM 50 MG TABLET PO SCH (10:13)
[2022-07-16] MEDS: MELATONIN 5 MG TABLETS PO SCH (21:20)
[2022-07-16] MEDS: ATORVASTATIN CA 20 MG TABLET (FP) PO SCH (21:20)
[2022-07-16] MEDS: ALPRAZolam 1 MG TABLET PO SCH (21:21)
[2022-07-17 06:30] LABS: HEMATOCRIT 34.7 % (32.4-45.2); HEMOGLOBIN 11.5 GM/dL (10.7-15.3); MCH 28.9 pg (25.7-33.7); MEAN CELL VOLUME 87.7 fl (80-96); MEAN PLT VOLUME 10.1 fl (7.5-11.1); PLATELET COUNT 162 10^3/uL (134-434); RBC 3.96 M/mm3 (3.60-5.2); RDW 14.6 % (11.6-15.6); WHITE BLOOD COUNT 5.9 K/mm3 (4.0-10.0)
[2022-07-17 06:41] LABS: POTASSIUM 3.9 mmol/L (3.5-5.1)
[2022-07-17 06:45] LABS: ALBUMIN 2.6 g/dl (3.4-5.0); CALCIUM 8.7 mg/dL (8.5-10.1); MAGNESIUM 1.7 mg/dL (1.8-2.4)
[2022-07-17 06:48] LABS: CREATININE 0.9 mg/dL (0.55-1.3); PHOSPHOROUS 4.2 mg/dL (2.5-4.9)
[2022-07-17 06:50] LABS: BILIRUBIN,TOTAL 0.5 mg/dL (0.2-1); TOT PROT 5.6 g/dl (6.4-8.2)
[2022-07-17] MEDS ORDERED: MAGNESIUM SULF 50% (8.12 MEQ/2 ML-1 GM VIAL) IVPB ONE (06:51)
[2022-07-17] MEDS: ASPIRIN COATED 81 MG TABLET.EC PO SCH (09:01)
[2022-07-17] MEDS: LOSARTAN POTASSIUM 50 MG TABLET PO SCH (09:01)
[2022-07-17] MEDS: OLANZapine 5 MG TABLET PO SCH ×2 (09:01→22:41)
[2022-07-17] MEDS: ENOXAPARIN NA (PORCINE) 40 MG/0.4 ML DISP.SYRIN SQ SCH (09:02)
[2022-07-17] MEDS: ALPRAZolam 1 MG TABLET PO SCH ×2 (09:02→22:42)
[2022-07-17] MEDS ORDERED: DEXTROSE 5%-WATER - 1,000 ML with POTASSIUM CHLORIDE 10 MEQ IV SCH (11:15)
[2022-07-17] MEDS: POTASSIUM CHLORIDE 10 MEQ in DEXTROSE 5%-WATER - 1,000 ML IV SCH (14:57)
[2022-07-17] MEDS: ATORVASTATIN CA 20 MG TABLET (FP) PO SCH (22:41)
[2022-07-17] MEDS: MELATONIN 5 MG TABLETS PO SCH (22:41)
[2022-07-18 06:21] LABS: HEMOGLOBIN 11.2 GM/dL (10.7-15.3); MCH 29.7 pg (25.7-33.7); MCHC 34.1 g/dl (32.0-36.0); MEAN CELL VOLUME 87.1 fl (80-96); PLATELET COUNT 186 10^3/uL (134-434); RBC 3.78 M/mm3 (3.60-5.2); RDW 14.6 % (11.6-15.6); WHITE BLOOD COUNT 5.6 K/mm3 (4.0-10.0)
[2022-07-18 06:47] LABS: POTASSIUM 4.3 mmol/L (3.5-5.1)
[2022-07-18 06:50] LABS: CALCIUM 8.4 mg/dL (8.5-10.1)
[2022-07-18 06:51] LABS: ALBUMIN 2.6 g/dl (3.4-5.0); BLOOD UREA NITROGEN 21.7 mg/dL (7-18); MAGNESIUM 1.8 mg/dL (1.8-2.4)
[2022-07-18 06:54] LABS: PHOSPHOROUS 4.1 mg/dL (2.5-4.9)
[2022-07-18 06:55] LABS: BILIRUBIN,TOTAL 0.5 mg/dL (0.2-1); TOT PROT 5.6 g/dl (6.4-8.2)
[2022-07-18] MEDS: POTASSIUM CHLORIDE 10 MEQ in DEXTROSE 5%-WATER - 1,000 ML IV SCH (09:38)
[2022-07-18] MEDS: ENOXAPARIN NA (PORCINE) 40 MG/0.4 ML DISP.SYRIN SQ SCH ×2 (09:39→09:48)
[2022-07-18] MEDS: ALPRAZolam 1 MG TABLET PO SCH ×2 (09:39→21:32)
[2022-07-18] MEDS: ASPIRIN COATED 81 MG TABLET.EC PO SCH (09:40)
[2022-07-18] MEDS: OLANZapine 5 MG TABLET PO SCH ×2 (09:40→21:31)
[2022-07-18] MEDS: LOSARTAN POTASSIUM 50 MG TABLET PO SCH (09:41)
[2022-07-18] MEDS ORDERED: OLANZapine 2.5 MG TABLET PO ONE (10:20)
[2022-07-18] MEDS: ATORVASTATIN CA 20 MG TABLET (FP) PO SCH (21:34)
[2022-07-18] MEDS: MELATONIN 5 MG TABLETS PO SCH (21:34)
[2022-07-19] MEDS: POTASSIUM CHLORIDE 10 MEQ in DEXTROSE 5%-WATER - 1,000 ML IV SCH ×2 (04:25→23:27)
[2022-07-19 08:49] LABS: HEMATOCRIT 36.7 % (32.4-45.2); HEMOGLOBIN 12.1 GM/dL (10.7-15.3); MCHC 32.9 g/dl (32.0-36.0); MEAN CELL VOLUME 88.3 fl (80-96); MEAN PLT VOLUME 9.7 fl (7.5-11.1); PLATELET COUNT 171 10^3/uL (134-434); RBC 4.16 M/mm3 (3.60-5.2); WHITE BLOOD COUNT 5.2 K/mm3 (4.0-10.0)
[2022-07-19] MEDS: ALPRAZolam 1 MG TABLET PO SCH (09:12)
[2022-07-19] MEDS: ASPIRIN COATED 81 MG TABLET.EC PO SCH (09:12)
[2022-07-19] MEDS: LOSARTAN POTASSIUM 50 MG TABLET PO SCH (09:12)
[2022-07-19] MEDS: ENOXAPARIN NA (PORCINE) 40 MG/0.4 ML DISP.SYRIN SQ SCH (09:12)
[2022-07-19] MEDS: OLANZapine 5 MG TABLET PO SCH ×2 (09:12→23:25)
[2022-07-19] MEDS ORDERED: OLANZapine 5 MG TABLET PO SCH (09:23)
[2022-07-19 09:40] LABS: POTASSIUM 4.6 mmol/L (3.5-5.1)
[2022-07-19 09:43] LABS: ALBUMIN 2.8 g/dl (3.4-5.0); BLOOD UREA NITROGEN 17.5 mg/dL (7-18); MAGNESIUM 1.9 mg/dL (1.8-2.4)
[2022-07-19 09:46] LABS: PHOSPHOROUS 4.4 mg/dL (2.5-4.9)
[2022-07-19 09:47] LABS: BILIRUBIN,TOTAL 0.5 mg/dL (0.2-1); TOT PROT 6.2 g/dl (6.4-8.2)
[2022-07-19] MEDS: ALPRAZolam 0.25 MG TABLET PO SCH ×2 (15:08→23:25)
[2022-07-19] MEDS: ATORVASTATIN CA 20 MG TABLET (FP) PO SCH (23:24)
[2022-07-19] MEDS: MELATONIN 5 MG TABLETS PO SCH (23:25)
[2022-07-20] MEDS: POTASSIUM CHLORIDE 10 MEQ in DEXTROSE 5%-WATER - 1,000 ML IV SCH ×3 (02:43→20:44)
[2022-07-20] MEDS: ALPRAZolam 0.25 MG TABLET PO SCH ×3 (06:26→21:42)
[2022-07-20] MEDS: ENOXAPARIN NA (PORCINE) 40 MG/0.4 ML DISP.SYRIN SQ SCH (09:15)
[2022-07-20] MEDS: OLANZapine 5 MG TABLET PO SCH ×2 (09:15→21:42)
[2022-07-20] MEDS: LOSARTAN POTASSIUM 50 MG TABLET PO SCH (09:15)
[2022-07-20] MEDS: ASPIRIN COATED 81 MG TABLET.EC PO SCH (09:15)
[2022-07-20] MEDS: ATORVASTATIN CA 20 MG TABLET (FP) PO SCH (21:41)
[2022-07-20] MEDS: MELATONIN 5 MG TABLETS PO SCH (21:42)
[2022-07-21] MEDS: ALPRAZolam 0.25 MG TABLET PO SCH ×4 (05:16→21:08)
[2022-07-21] MEDS: LOSARTAN POTASSIUM 50 MG TABLET PO SCH (09:09)
[2022-07-21] MEDS: OLANZapine 5 MG TABLET PO SCH ×2 (09:09→21:07)
[2022-07-21] MEDS: ASPIRIN COATED 81 MG TABLET.EC PO SCH (09:10)
[2022-07-21] MEDS: ENOXAPARIN NA (PORCINE) 40 MG/0.4 ML DISP.SYRIN SQ SCH (09:11)
[2022-07-21] MEDS: POTASSIUM CHLORIDE 10 MEQ in DEXTROSE 5%-WATER - 1,000 ML IV SCH ×2 (15:22→17:00)
[2022-07-21] MEDS: MELATONIN 5 MG TABLETS PO SCH (21:07)
[2022-07-21] MEDS: ATORVASTATIN CA 20 MG TABLET (FP) PO SCH (21:08)
[2022-07-22] MEDS: ALPRAZolam 0.25 MG TABLET PO SCH ×3 (05:16→22:01)
[2022-07-22 08:14] LABS: POTASSIUM 4.3 mmol/L (3.5-5.1)
[2022-07-22 08:27] LABS: BLOOD UREA NITROGEN 22.5 mg/dL (7-18)
[2022-07-22 08:30] LABS: CREATININE 1.2 mg/dL (0.55-1.3)
[2022-07-22] MEDS: ENOXAPARIN NA (PORCINE) 40 MG/0.4 ML DISP.SYRIN SQ SCH (10:53)
[2022-07-22] MEDS: LOSARTAN POTASSIUM 50 MG TABLET PO SCH (10:53)
[2022-07-22] MEDS: OLANZapine 5 MG TABLET PO SCH ×2 (10:53→22:01)
[2022-07-22] MEDS: ASPIRIN COATED 81 MG TABLET.EC PO SCH (10:53)
[2022-07-22] MEDS: POTASSIUM CHLORIDE 10 MEQ in DEXTROSE 5%-WATER - 1,000 ML IV SCH (13:58)
[2022-07-22] MEDS: ATORVASTATIN CA 20 MG TABLET (FP) PO SCH (22:01)
[2022-07-22] MEDS: MELATONIN 5 MG TABLETS PO SCH (22:01)
[2022-07-23] MEDS: ALPRAZolam 0.25 MG TABLET PO SCH ×2 (06:20→14:05)
[2022-07-23 07:50] LABS: HEMATOCRIT 32.6 % (32.4-45.2); HEMOGLOBIN 10.9 GM/dL (10.7-15.3); MCH 29.2 pg (25.7-33.7); MCHC 33.4 g/dl (32.0-36.0); MEAN CELL VOLUME 87.6 fl (80-96); MEAN PLT VOLUME 9.4 fl (7.5-11.1); PLATELET COUNT 195 10^3/uL (134-434); RBC 3.72 M/mm3 (3.60-5.2); RDW 14.7 % (11.6-15.6)
[2022-07-23 08:11] LABS: POTASSIUM 4.4 mmol/L (3.5-5.1)
[2022-07-23 08:15] LABS: ALBUMIN 2.7 g/dl (3.4-5.0); BLOOD UREA NITROGEN 26.5 mg/dL (7-18); CALCIUM 8.9 mg/dL (8.5-10.1); MAGNESIUM 1.9 mg/dL (1.8-2.4)
[2022-07-23 08:18] LABS: CREATININE 1.2 mg/dL (0.55-1.3); PHOSPHOROUS 4.5 mg/dL (2.5-4.9)
[2022-07-23 08:20] LABS: BILIRUBIN,TOTAL 0.4 mg/dL (0.2-1); TOT PROT 5.9 g/dl (6.4-8.2)
[2022-07-23] MEDS: POTASSIUM CHLORIDE 10 MEQ in DEXTROSE 5%-WATER - 1,000 ML IV SCH (08:23)
[2022-07-23] MEDS: LOSARTAN POTASSIUM 50 MG TABLET PO SCH (09:01)
[2022-07-23] MEDS: OLANZapine 5 MG TABLET PO SCH (09:01)
[2022-07-23] MEDS: ENOXAPARIN NA (PORCINE) 40 MG/0.4 ML DISP.SYRIN SQ SCH (09:01)
[2022-07-23] MEDS: ASPIRIN COATED 81 MG TABLET.EC PO SCH (09:02)
[2022-07-23 18:44] VITALS: BP 125/55; PULSE 76; RESP 17; TEMP 98.1
== END 2022-07-23 21:14 | DRG 92 ==
LOC: JER 17:06 → JERBED 22:31 → J4S 07-06 04:22
PROVIDERS: ADMIT Internal Medicine; ATTEND Internal Medicine
DX: R29.6 Repeated falls (principal); E87.0 Hyperosmolality and hypernatremia; I24.8 Other forms of acute ischemic heart disease; F03.918 Unspecified dementia, unspecified severity, with other behavioral disturbance; E78.5 Hyperlipidemia, unspecified; R00.1 Bradycardia, unspecified; T42.6X5A Adverse effect of other antiepileptic and sedative-hypnotic drugs, initial encounter; T50.995A Adverse effect of other drugs, medicaments and biological substances, initial encounter; Y92.89 Other specified places as the place of occurrence of the external cause; E86.0 Dehydration; I10 Essential (primary) hypertension
CPT/HCPCS: 36415; 70450-TC; 71045-TC-FY; 72125-TC; 80048; 80053; 80061; 81003; 82550; 82607; 82746; 83735; 84100; 84443; 84484; 85025; 85027; 85610; 85730; 86705; 87086; 87340; 87389; 87517; 87522; 93005; 93010; 97116-GP; 97162-GP; 99285-25; C9803-CS; U0003; U0005